=== PATIENT | female | born 1945 | race Caucasian/White ===

== ENCOUNTER 2017-03-22 23:07 | Emergency (ER) | payer MEDICARE ==
[2017-03-22] MEDS ORDERED: Ketorolac INJ* 30 MG/ML 1 ML VIAL IV PUSH ONE (23:41)
[2017-03-22] MEDS ORDERED: Morphine INJ* 4 MG/ML 1 ML CARPUJECT IV ONE (23:41)
[2017-03-22 23:52] LABS: Urine Appearance Cloudy; Urine Color Red
[2017-03-23] MEDS ORDERED: NS 0.9% 1000 ML* 1,000 ML IV ONE ×2 (00:10→00:17)
[2017-03-23 00:17] LABS: EGFR Non-African American 44.9 (>60)
[2017-03-23 00:23] LABS: INR 0.9 (0.77-1.02)
[2017-03-23 00:59] LABS: ABS Basophils 0.1 10^3/ul (0-0.2); ABS Eosinophils 0.2 10^3/ul (0-0.6); ABS Lymphocytes 1.6 10^3/ul (1.0-4.8); ABS Monocytes 0.6 10^3/ul (0-0.8); ABS Neutrophils 8.9 10^3/ul (1.5-7.7); ABS Nucleated RBC 0 10^3/ul; Eosinophil % 2.2 % (0-6); Hematocrit 37 % (35-47); Hemoglobin 12.7 g/dl (12.0-16.0); Lymphocyte % 14.4 % (25-47); Mean Corpuscular HGB Conc 34 g/dl (31-36); Mean Corpuscular Hemoglobin 32 pg (27-31); Mean Corpuscular Volume 93 fL (80-97); Mean Platelet Volume 8 um3 (7.4-10.4); Nucleated Red Blood Cells % 0; Platelet Count 291 10^3/ul (150-450); Red Blood Count 4.02 10^6/ul (4.0-5.4); Red Cell Distribution Width 13 % (10.5-15); White Blood Count 11.4 10^3/ul (3.5-10.8)
[2017-03-23] MEDS ORDERED: Ciprofloxacin TAB* 500 MG PO ONE (01:55)
[2017-03-23 02:34] VITALS: BP 134/60
--- NOTE | 2017-03-23 12:40 | RAD ---
CLINICAL HISTORY: Left-sided flank pain, emesis x2 and hematuria COMPARISON: None TECHNIQUE: Noncontrast CT examination of the abdomen and pelvis from the lung bases through the initial tuberosities. FINDINGS: VISUALIZED LUNG BASES: The visualized lung bases are grossly clear. There is no pleural effusion. ABDOMEN AND PELVIS: Evaluation of the solid organs and vasculature is limited without intravenous contrast. The liver, spleen, pancreas and adrenal glands are grossly normal in appearance. There is hyperattenuating material in the lumen of the gallbladder. This does not appear to be gravity dependent although this may be due to contraction of the gallbladder. There are no inflammatory changes surrounding the gallbladder. The right kidney is normal in appearance without focal mass, calcification or signs of hydronephrosis. There is a [id number] degree of left-sided hydronephrosis and mild left perinephric stranding. At the left ureterovesical junction there is a 4 mm calcification (axial image 168). Evaluation of the gastrointestinal tract is limited in the absence of oral contrast. The small and large bowel are not distended. There are scattered rectosigmoid diverticula without focal inflammatory change. There is no gross retroperitoneal or mesenteric lymphadenopathy. At the right adnexa there is a partial fat density mixed attenuation well circumscribed mass measuring 3.5 cm. The abdominal aorta and iliac arteries are normal in course and diameter. Degenerative changes include multilevel loss of intervertebral disc height involving the lower thoracic and lumbar spine, lumbar level vacuum disc phenomenon and marginal osteophyte formation.There are no sinister bone lesions. IMPRESSION: 1. There is mild to moderate left-sided hydronephrosis and perinephric stranding in the presence of a 4 mm calcification at the left ureterovesical junction. 2. Sigmoid diverticulosis without inflammatory changes characteristic of diverticulitis. 3. Hyperattenuating material seen in the lumen of the apparently partially contracted gallbladder that most likely represents gallstones or biliary sludge. Superior characterization can be made with nonemergent ultrasound of the gallbladder. 4. CT findings of the right ovary are most consistent with a 3.5 cm teratoma.
--- NOTE | 2017-03-24 00:22 | ED ---
Abdominal Pain/Female - HPI Summary HPI Summary: Patient is an otherwise healthy 71-year-old female who presents to the ED with left sided flank pain and suprapubic fullness since 8:30 this afternoon. She also has been experiencing suprapubic fullness for 2 months, but has always had negative urines at her PCP office. She has never had a kidney stone. Symptoms are aggravated by nothing and relieved with nothing. She states she has been drinking plenty of water and has been drinking lemon water. Has denied any blood in the urine until this afternoon. There is a moderate amount of blood in the urine on arrival. Denies any fevers, sweats, chills. Denies any right- sided flank pain. Denies any obstructive symptoms and states she is continuing to urinate normally. She takes no medications, has no significant health history. History of UTIs many years ago, none currently. - History of Current Complaint Chief Complaint: EDFlankPain Stated Complaint: FLANK PAIN Time Seen by Provider: 03/22/17 23:33 Hx Obtained From: Patient ?: No Onset/Duration: Sudden Onset Timing: Constant Severity Initially: Moderate Severity Currently: Moderate Pain Intensity: 0 Pain Scale Used: 0-10 Numeric Location: Flank Radiates: No Character: Sharp, Burning Aggravating Factor(s): Nothing Alleviating Factor(s): Nothing Associated Signs and Symptoms: Positive: Negative - Risk Factors Ectopic Risk Factor: Negative Ovarian Torsion Risk Factor: Negative Allergies/Adverse Reactions: Allergies Allergy/AdvReac Type Severity Reaction Status Date / Time No Known Allergies Allergy Verified 03/22/17 23:30 PMH/Surg Hx/FS Hx/Imm Hx Previously Healthy: Yes - Immunization History Hx Pertussis Vaccination: No Immunizations Up to Date: Unable to Obtain/Confirm Infectious Disease History: No Infectious Disease History: Denies: Traveled Outside the [place] in Last 30 Days - Social History Occupation: Unemployed Lives: With Family Alcohol Use: None Hx Substance Use: No Substance Use Type: Reports: None Hx Tobacco Use: No Smoking Status (MU): Never Smoked Tobacco Review of Systems Constitutional: Negative Negative: Fever, Chills, Fatigue, Skin Diaphoresis Eyes: Negative ENT: Negative Respiratory: Negative Gastrointestinal: Negative Positive: see HPI, flank pain - left sided CVA, hematuria, other - bladder pressure Musculoskeletal: Negative Skin: Negative Neurological: Negative All Other Systems Reviewed And Are Negative: Yes Physical Exam Triage Information Reviewed: Yes Vital Signs On Initial Exam: Initial Vitals Temp Pulse Resp BP Pulse Ox 98.0 F 79 18 155/79 97 03/22/17 23:15 03/22/17 23:15 03/22/17 23:15 03/22/17 23:15 03/22/17 23:15 Vital Signs Reviewed: Yes Appearance: Positive: Well-Appearing, Well-Nourished Skin: Positive: Warm, Skin Color Reflects Adequate Perfusion Head/Face: Positive: Normal Head/Face Inspection Eyes: Positive: EOMI, RAVEN, Conjunctiva Clear Neck: Positive: Supple, No Lymphadenopathy Respiratory/Lung Sounds: Positive: Clear to Auscultation, Breath Sounds Present Cardiovascular: Positive: Normal, RRR, Pulses are Symmetrical in both Upper and Lower Extremities Abdomen Description: Positive: Soft, CVA Tenderness (L) Musculoskeletal: Positive: Strength/ROM Intact Neurological: Positive: Speech Normal Psychiatric: Positive: Affect/Mood Appropriate AVPU Assessment: Alert Diagnostics - Vital Signs Vital Signs Temp Pulse Resp BP Pulse Ox 03/23/17 02:30 97.8 F 67 16 134/60 100 03/23/17 02:22 67 134/60 99 03/23/17 02:00 70 134/64 94 03/23/17 01:30 64 133/57 96 03/23/17 01:00 62 131/58 96 03/23/17 00:30 63 121/58 96 03/23/17 00:27 62 96 03/23/17 00:17 65 128/52 95 03/23/17 00:02 76 150/64 95 03/23/17 00:00 75 16 97 03/22/17 23:30 155/79 03/22/17 23:18 65 97 03/22/17 23:17 75 96 03/22/17 23:15 98.0 F 79 18 155/79 97 - Laboratory Lab Results: Lab Results 03/22/17 03/22/17 03/22/17 Range/Units 23:25 23:52 23:52 WBC 11.4 H (3.5-10.8) 10^3/ul RBC 4.02 (4.0-5.4) 10^6/ul Hgb 12.7 (12.0-16.0) g/dl Hct 37 (35-47) % MCV 93 (80-97) fL MCH 32 H (27-31) pg MCHC 34 (31-36) g/dl RDW 13 (10.5-15) % Plt Count 291 (150-450) 10^3/ul MPV 8 (7.4-10.4) um3 Neut % (Auto) 77.8 (38-83) % Lymph % (Auto) 14.4 L (25-47) % Humphreys % (Auto) 5.0 (1-9) % Eos % (Auto) 2.2 (0-6) % Baso % (Auto) 0.6 (0-2) % Absolute Neuts (auto) 8.9 H (1.5-7.7) 10^3/ul Absolute Lymphs (auto) 1.6 (1.0-4.8) 10^3/ul Absolute Monos (auto) 0.6 (0-0.8) 10^3/ul Absolute Eos (auto) 0.2 (0-0.6) 10^3/ul Absolute Basos (auto) 0.1 (0-0.2) 10^3/ul Absolute Nucleated RBC 0 10^3/ul Nucleated RBC % 0 INR (Anticoag Therapy) (0.77-1.02) Sodium 138 (133-145) mmol/L Potassium 4.3 (3.5-5.0) mmol/L Chloride 103 (101-111) mmol/L Carbon Dioxide 28 (22-32) mmol/L Anion Gap 7 (2-11) mmol/L BUN 25 H (6-24) mg/dL Creatinine 1.18 H (0.51-0.95) mg/dL Est GFR ( Amer) 57.7 (>60) Est GFR (Non-Af Amer) 44.9 (>60) BUN/Creatinine Ratio 21.2 H (8-20) Glucose 120 H (70-100) mg/dL Lactic Acid (0.5-2.0) mmol/L Calcium 9.6 (8.6-10.3) mg/dL Total Bilirubin 0.40 (0.2-1.0) mg/dL AST 22 (13-39) U/L ALT 24 (7-52) U/L Alkaline Phosphatase 60 (34-104) U/L C-Reactive Protein 1.28 (< 5.00) mg/L Total Protein 7.5 (6.4-8.9) g/dL Albumin 4.4 (3.2-5.2) g/dL Globulin 3.1 (2-4) g/dL Albumin/Globulin Ratio 1.4 (1-3) Lipase 47 (11.0-82.0) U/L Urine Color Red A Urine Appearance Cloudy Urine WBC (Auto) 3+(>20/hpf) H (Absent) Urine RBC (Auto) 3+(>10/hpf) H (Absent) Urine Bacteria Absent (Absent) 03/22/17 03/22/17 Range/Units 23:52 23:52 WBC (3.5-10.8) 10^3/ul RBC (4.0-5.4) 10^6/ul Hgb (12.0-16.0) g/dl Hct (35-47) % MCV (80-97) fL MCH (27-31) pg MCHC (31-36) g/dl RDW (10.5-15) % Plt Count (150-450) 10^3/ul MPV (7.4-10.4) um3 Neut % (Auto) (38-83) % Lymph % (Auto) (25-47) % Humphreys % (Auto) (1-9) % Eos % (Auto) (0-6) % Baso % (Auto) (0-2) % Absolute Neuts (auto) (1.5-7.7) 10^3/ul Absolute Lymphs (auto) (1.0-4.8) 10^3/ul Absolute Monos (auto) (0-0.8) 10^3/ul Absolute Eos (auto) (0-0.6) 10^3/ul Absolute Basos (auto) (0-0.2) 10^3/ul Absolute Nucleated RBC 10^3/ul Nucleated RBC % INR (Anticoag Therapy) 0.90 (0.77-1.02) Sodium (133-145) mmol/L Potassium (3.5-5.0) mmol/L Chloride (101-111) mmol/L Carbon Dioxide (22-32) mmol/L Anion Gap (2-11) mmol/L BUN (6-24) mg/dL Creatinine (0.51-0.95) mg/dL Est GFR ( Amer) (>60) Est GFR (Non-Af Amer) (>60) BUN/Creatinine Ratio (8-20) Glucose (70-100) mg/dL Lactic Acid 1.1 (0.5-2.0) mmol/L Calcium (8.6-10.3) mg/dL Total Bilirubin (0.2-1.0) mg/dL AST (13-39) U/L ALT (7-52) U/L Alkaline Phosphatase (34-104) U/L C-Reactive Protein (< 5.00) mg/L Total Protein (6.4-8.9) g/dL Albumin (3.2-5.2) g/dL Globulin (2-4) g/dL Albumin/Globulin Ratio (1-3) Lipase (11.0-82.0) U/L Urine Color Urine Appearance Urine WBC (Auto) (Absent) Urine RBC (Auto) (Absent) Urine Bacteria (Absent) Result Diagrams: 03/22/17 23:52 03/22/17 23:52 Lab Statement: Any lab studies that have been ordered have been reviewed, and results considered in the medical decision making process. Abdominal Pain Fem Course/Dx - Course Course Of Treatment: During the course of treatment, the patient is evaluated for UTI and flank pain symptoms. She is given Toradol 30 mg IV, 2 L normal saline and 4 mg Zofran IV. Labs obtained and unremarkable. UA obtained which shows 3+ leuk trase and 3+WBC count. Urine is pink to red and has 3+ RBCs. On reevaluation, symptoms have resolved with Toradol. CT abdomen and pelvis without contrast from an overnight read shows mild left hydroureter and left hydronephrosis. There is left-sided. He ureteric and perinephritic stranding. There is a 3 mm calculus involving the left aspect of the urinary bladder, consistent with a recently passed stone. There is no definitive obstructive urolithiasis. There is a 3.910 m rounded structure involving the right hemipelvis. This is prominently effect density but also contain soft tissue density and punctate calcification. This is consistent with a teratoma. There is mild colonic diverticulosis. Ultrasound is advised if symptomatology persists. Unknown during the course of treatment if patient has passed stone. Based on CT results, likely a 4 mm stone in bladder has passed and now hydronephrosis will resolve. Patient is asymptomatic. I have discussed treatment options and strict return precautions, however I believe it is safe at this time to discharge the patient with pain control and follow-up with urology. She is to return for any worsening or changing symptoms. I have given her a prescription for ciprofloxacin for a co-comittent UTI. - Diagnoses Provider Diagnoses: Nephrolithiasis Discharge - Discharge Plan Condition: Stable Disposition: HOME Prescriptions: Ciprofloxacin TAB* [Cipro 500 MG TAB*] 500 mg PO BID #14 tab traMADol TAB* [Ultram*] 50 mg PO Q8H PRN #10 tab MDD 3 PRN Reason: Pain Patient Education Materials: Kidney Stones (ED) Referrals: Bertin Mora MD [Primary Care Provider] - Additional Instructions: If you develop any worsening symptoms, he may take the pain medication at home and return to the ED I am treating you also for a UTI Ciprofloxacin 500 mg tabs twice daily 7 days Please follow up with Dr. Mora
== END 2017-03-23 02:35 | disposition home or self-care (01) ==
LOC: ED 23:07
DX: N20.0 Calculus of kidney (principal); N39.0 Urinary tract infection, site not specified
CPT/HCPCS: 36415; 74176; 80053; 81003; 83605; 83690; 85025; 85610; 86140; 96360; 96374; 96375; 99284; A9270-GY; J1885; J2270

== ENCOUNTER 2017-05-22 07:45 | Day surgery (SDC) | payer MEDICARE ==
[~2017-05-22 07:45] MED LIST: Acetaminophen TAB* 325 MG PO PRN; Buffered Lidocaine 0.9% SYRIN* 5 ML/SYR SYRINGE INTRADERM ONE
[2017-05-22] MEDS ORDERED: Phenylephrine 2.5% OPTH.SOL* 2 ML BTL ONE (08:22)
[2017-05-22] MEDS ORDERED: Cyclopentolate 1% OPTH.SOL* 2 ML BTL ONE (08:22)
[2017-05-22] MEDS ORDERED: Proparacaine 0.5% OPHTH.SOL* 15 ML BTL ONE (08:22)
[2017-05-22] MEDS ORDERED: Povidone Iodine 5% OPTH* 30 ML BTL ONE (08:22)
[2017-05-22] MEDS ORDERED: Lidocaine 1% MPF* 2 ML VIAL ONE (08:22)
[2017-05-22] MEDS ORDERED: Lidocaine 2% EPI 1:200000 MPF* 20 ML VIAL ONE (08:22)
[2017-05-22] MEDS ORDERED: Ketorolac 0.5% OPHTH (NF) 0.5 % 5 ML BTL ONE (08:22)
[2017-05-22] MEDS ORDERED: Neomycin/Polymy/Dex OPTH.SUSP* MAXITROL 0.1% 5 ML ONE (08:22)
[2017-05-22] MEDS ORDERED: acetaZOLAMIDE TAB* 250 MG ONE (08:22)
[2017-05-22] MEDS ORDERED: fentaNYL* 50 MCG/ML 2 ML VIAL (100 MCG VIAL) ONE (09:04)
[2017-05-22] MEDS ORDERED: Midazolam* 1 MG/ML 2 ML VIAL (2 MG) ONE (09:04)
[2017-05-22 10:19] VITALS: BP 132/72
--- NOTE | 2017-05-22 22:19 | OP ---
DATE OF OPERATION: 05/22/17 [facility] DATE OF : 41 SURGEON: Hank Roque MD PREOPERATIVE DIAGNOSIS: Cataract, right eye. POSTOPERATIVE DIAGNOSIS: Cataract, right eye. OPERATIVE PROCEDURE: Extracapsular cataract extraction with intraocular lens implant, right eye. DESCRIPTION OF PROCEDURE: The patient was brought to the operating room after being given 1/2% Alcaine with epinephrine drops in the preoperative area. The eye was prepped and draped in the usual sterile fashion. Sterile drape and eyelid speculum were placed. Again, topical 1/2% Alcaine with epinephrine was given. A paracentesis incision was made at the 9 o'clock position with the No.75 blade. Clear cornea incision 2.2 x 2.2-mm was created at the 12 o'clock position starting at the anterior limbus using the 2.2-mm keratome. The anterior chamber was irrigated with 0.4 mL of 1% non-preservative intracameral lidocaine and filled with DisCoVisc. A capsulorrhexis was completed using the cystotome and the Utrata forceps. Hydrodissection was performed with balanced salt solution. The lens nucleus was removed with the Phacoemulsification handpiece without incident. Cortex was removed with the irrigation-aspiration handpiece. The capsular bag was re-inflated using DisCoVisc and an [id number] 27.5 implant was inserted with the shooter. The irrigation-aspiration handpiece was used to remove all residual DisCoVisc. The eye was refilled with balanced salt solution and the wound checked and found to be watertight. Topical Maxitrol drops were given. [id number]/[facility] #: [id number] MTDD
== END 2017-05-22 10:13 | disposition home or self-care (01) ==
LOC: OREAST 07:45
PROVIDERS: ATTEND Specialist
DX: H25.811 Combined forms of age-related cataract, right eye (principal); E03.9 Hypothyroidism, unspecified; E66.9 Obesity, unspecified; Z68.33 Body mass index [BMI] 33.0-33.9, adult
CPT/HCPCS: A9270-GY; J2250; J3010; V2632

== ENCOUNTER 2017-05-29 09:02 | Day surgery (SDC) | payer MEDICARE ==
[~2017-05-29 09:02] MED LIST changes: -Acetaminophen TAB* 325 MG PO PRN; +Cyclopentolate 1% OPTH.SOL* 2 ML BTL ONE; +Ketorolac 0.5% OPHTH (NF) 0.5 % 5 ML BTL ONE; +Lidocaine 1% MPF* 2 ML VIAL ONE; +Lidocaine 2% EPI 1:200000 MPF*10-20 ML VIAL ONE; +Neomycin/Polymy/Dex OPTH.SUSP* MAXITROL 0.1% 5 ML ONE; +Phenylephrine 2.5% OPTH.SOL* 2 ML BTL ONE; +Povidone Iodine 5% OPTH* 30 ML BTL ONE; +Proparacaine 0.5% OPHTH.SOL* 15 ML BTL ONE; +acetaZOLAMIDE TAB* 250 MG ONE
[2017-05-29] MEDS ORDERED: Midazolam* 1 MG/ML 2 ML VIAL (2 MG) ONE (11:32)
[2017-05-29 12:18] VITALS: BP 141/73
--- NOTE | 2017-05-29 13:25 | OP ---
OPERATIVE NOTE: DATE OF OPERATION: 05/29/17 DATE OF : 41 SURGEON: Hank Roque M.D. PREOPERATIVE DIAGNOSIS: Cataract, left eye. POSTOPERATIVE DIAGNOSIS: Cataract, left eye. OPERATIVE PROCEDURE: Extracapsular cataract extraction with intraocular lens implant left eye. PROCEDURE: The patient was brought to the operating room after being given 1/2% Alcaine with epineph rine drops in the preoperative area. The eye was prepped and draped in the usual sterile fashion. S terile drape and eyelid speculum were placed. Again, topical 1/2% Alcaine with epinephrine was given . A paracentesis incision was made at the 3 o'clock position with the No.75 blade. Clear cornea inc ision 2.2 x 2.2-mm was created at the 6 o'clock position starting at the anterior limbus using the 2. 2-mm keratome. The anterior chamber was irrigated with 0.4 mL of 1% non-preservative intracameral li docaine and filled with DisCoVisc. A capsulorrhexis was completed using the cystotome and the Utrata forceps. Hydrodissection was performed with balanced salt solution. The lens nucleus was removed wi th the Phacoemulsification handpiece without incident. Cortex was removed with the irrigation-aspira tion handpiece. The capsular bag was re-inflated using DisCoVisc and an [id number] implant was insert ed with the shooter. The irrigation-aspiration handpiece was used to remove all residual DisCoVisc. The eye was refilled with balanced salt solution and the wound checked and found to be watertight. Topical Maxitrol drops were given. [id number]/[facility] #: [id number]
== END 2017-05-29 12:03 | disposition home or self-care (01) ==
LOC: OREAST 09:02
PROVIDERS: ATTEND Specialist
DX: H25.812 Combined forms of age-related cataract, left eye (principal); E03.9 Hypothyroidism, unspecified
CPT/HCPCS: A9270-GY; J2250; V2632